=== PATIENT | female | born 1950 | race Caucasian/White ===

== ENCOUNTER 2017-10-03 14:31 | Outpatient (CLI) | payer MEDICARE ==
--- NOTE | 2017-10-03 16:27 | MMO ---
BILATERAL DIGITAL SCREENING MAMMOGRAMS: HISTORY: This 67-year-old female presents for digital screening mammography. COMPARISON: 09/26/16, 09/08/15, 07/21/14, 06/23/13. This patient's mammogram is interpreted with the assistance of computer-aided detection. Scattered fibroglandular densities are noted bilaterally. No direct or indirect evidence of malignan cy. IMPRESSION: BI-RADS category 1, negative. Continued routine screening. Continued routine screening. BIRADS 1: Negative Routine annual screening mammography (for women over age 40) POS: [facility]
== END 2017-10-03 14:32 | disposition home or self-care (01) ==
LOC: SCSMAMMO 14:31
PROVIDERS: ATTEND Internal Medicine
DX: Z12.31 Encounter for screening mammogram for malignant neoplasm of breast (principal)
CPT/HCPCS: 77067

== ENCOUNTER 2018-04-29 10:04 | Outpatient (CLI) | payer MEDICARE ==
--- NOTE | 2018-04-29 12:29 | ULT ---
THYROID ULTRASOUND: Comparison: 03-10-14 History: Thyroid nodules. Technique: Sagittal and transverse imaging of the thyroid is performed. FINDINGS: Right thyroid lobe measures 4.6 x 1.7 x 1.8 cm. Left thyroid lobe measures 1.9 x 1.8 x 4.4 cm. Thyroi d isthmus is 0.4 cm. There are multiple solid and cystic nodules throughout the left and right thyroid lobe. The largest n odule in the left thyroid lobe measures 1.4 cm and has a solid echotexture. Largest nodule in the rig ht thyroid lobe measures 1.1 cm and also has a solid echotexture. IMPRESSION: Multiple solid nodules throughout the thyroid gland. Largest solid nodules in the left thyroid lobe, midpole, measuring 1.4 cm in maximum dimension. This lesion has a TIRADS calculated score of TR3 and follow up imaging in one year is recommended. POS: [facility]
== END 2018-04-29 10:05 | disposition home or self-care (01) ==
LOC: SCSULT 10:04
PROVIDERS: ATTEND Internal Medicine
DX: E04.2 Nontoxic multinodular goiter (principal)
CPT/HCPCS: 76536

== ENCOUNTER 2018-06-04 12:44 | Emergency (ER) | payer MEDICARE ==
[2018-06-04] MEDS ORDERED: Adacel (T-DAP) 0.5 ML SYRINGE ONE (13:03)
[2018-06-04] MEDS ORDERED: Acetaminophen 500 MG TAB ONE (13:35)
--- NOTE | 2018-06-04 14:17 | CT ---
BRAIN CT WITHOUT IV CONTRAST: Date; 06/04/18 HISTORY: 68-year-old female with history of injury from a fall while running, trauma. FINDINGS: No focal mass or midline shift. No intra or extra-axial hemorrhage. Sinuses and mastoids are clear of acute process. IMPRESSION: No significant acute intracranial process. No mass or bleed. POS: [facility]
--- NOTE | 2018-06-04 14:17 | RAD ---
RIGHT HUMERUS 2 VIEWS: Date: 06/04/18 INDICATION: Emergency examination after fall. IMPRESSION: No acute fracture or subluxation is evident. There is diffuse osteopenia. POS: [facility]
--- NOTE | 2018-06-04 14:21 | RAD ---
RIGHT HAND 3 VIEWS: Date: 06/04/18 INDICATION: History of fall with hand pain. COMPARISON: None. FINDINGS: There is postprocedural change of a prior trapeziectomy. There is lucency involving the base of the t humb metacarpal likely related to tendon interposition. There are scattered subchondral cyst-like abn ormalities involving the carpal bone. 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 There is diffuse osteopenia. No acute fracture is evident. Ther e is an ossicle adjacent to the ulnar styloid process. IMPRESSION: No acute osseous abnormality. Scattered osteoarthrosis and postsurgical change of the right hand. POS: [facility]
== END 2018-06-04 14:15 | disposition home or self-care (01) ==
LOC: SCSER 12:44
DX: S01.111A Laceration without foreign body of right eyelid and periocular area, initial encounter (principal); W01.0XXA Fall on same level from slipping, tripping and stumbling without subsequent striking against object, initial encounter
CPT/HCPCS: 12011; 70450; 90471; 90715

== ENCOUNTER 2018-10-22 14:21 | Outpatient (CLI) | payer MEDICARE ==
--- NOTE | 2018-10-22 15:44 | MMO ---
Bilateral MAMMO Bilat Screen [facility]. CLINICAL HISTORY: Patient is 68 years old and is seen for screening. The patient has no family history of breast cancer. The patient has no personal history of cancer. VIEWS: The views performed were: bilateral craniocaudal and bilateral mediolateral oblique. FILMS COMPARED: The present examination has been compared to prior imaging studies performed at [facility] on 06/23/2013, 07/21/2014, 09/08/2015, 09/26/2016 and 10/03/2017. This study has been interpreted with the assistance of computer-aided detection. MAMMOGRAM FINDINGS: The breasts are heterogeneously dense, which could obscure a lesion on mammography. There are no suspicious masses, suspicious calcifications, or new areas of architectural distortion. IMPRESSION: THERE IS NO MAMMOGRAPHIC EVIDENCE OF MALIGNANCY. A ROUTINE FOLLOW-UP MAMMOGRAM IN 1 YEAR IS RECOMMENDED. ACR BI-RADS Category 1 - Negative MAMMOGRAPHY NOTE: 1. A negative mammogram report should not delay a biopsy if a dominant of clinically suspicious mass is present. 2. Approximately 10% to 15% of breast cancers are not detected by mammography. 3. Adenosis and dense breasts may obscure an underlying neoplasm.
== END 2018-10-22 14:22 | disposition home or self-care (01) ==
LOC: SCSMAMMO 14:21
PROVIDERS: ATTEND Internal Medicine
DX: Z12.31 Encounter for screening mammogram for malignant neoplasm of breast (principal)
CPT/HCPCS: 77067